=== PATIENT | male | born 1950 | race Hispanic/Latino ===

== ENCOUNTER 2019-01-07 09:32 | Inpatient (IN) | payer OTHER, MEDICARE ==
--- OUTSIDE RECORDS SUMMARY | 2019-01-07 10:06 | XMS REPORT ---
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
--- OUTSIDE RECORDS SUMMARY | 2019-01-07 10:06 | XMS REPORT ---
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
--- OUTSIDE RECORDS SUMMARY | 2019-01-07 10:06 | XMS REPORT ---
:1950 Author Organization eClinicalWorks Care Team Providers Name Role Phone Aby Dengh Provider Role Unavailable Allergies, Adverse Reactions, Alerts Substance Reaction Event Type N.K.D.A. 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 Assessment Proteinuria, unspecified type R80.9 Active Problem Proteinuria, unspecified type R80.9 Active Problem Mixed hyperlipidemia E78.2 Active Problem Tobacco use disorder F17.200 Active Problem HTN (hypertension), benign I10 Active Problem half-way current use of insulin Z79.4 Active Assessment half-way current use of insulin Z79.4 Active Assessment Tobacco use disorder F17.200 Active Assessment Swelling of joint, wrist, right M25.431 Active Assessment History of carpal tunnel surgery Z92.89 Active Assessment 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 Assessment Mixed hyperlipidemia E78.2 Active Assessment Hypothyroidism, unspecified type E03.9 Active Assessment Type 2 diabetes mellitus with E11.65 Active hyperglycemia Assessment HTN (hypertension), benign I10 Active Problem History of carpal tunnel surgery Z92.89 Active Medications Medication Code Code Instructions Start End Status Dosage System Date Date Zoloft [facility] 13626859343 50 MG Orally Active Take 1/2 Once a day tablet once a day x 1 week and then take 1 tablet once a day Tradjenta [facility] 21010413384 5 MG Orally February Active 1 tablet Once a day 2017 Levemir [facility] 25087733056 100 UNIT/ML Inactive not Subcutaneous defined Aspir-81 ND 26839856110 81 MG Orally Active 1 tablet Once a day Metformin HCl ND 16194343025 500 MG Orally February Active 1 tablet Twice a day 2017 with meals Tramadol HCl [facility] 55929321190 50 MG Orally Active 1 tablet every 6 hrs as needed Ibuprofen [facility] 39208033896 800 MG Orally Active 1 tablet Three times a with food day PRN or milk swelling and as needed pain Crestor [facility] 52749717870 10 MG Orally Active 1 tablet Once a day Levothyroxine [facility] 09480088774 75 MCG Orally Active 1 tablet Sodium Once a day on an empty stomach in the morning Lisinopril [facility] 50791847890 5 MG Orally February Active 1 tablet Once a day 2017 Tresiba [facility] 33668983500 200 UNIT/ML February Active Inject 60 FlexTouch Subcutaneous 2017 units once a day Omeprazole [facility] 34909230894 40 MG Orally Active 1 capsule Once a day Results No Known Results Summary Purpose eClinicalWorks Submission
--- OUTSIDE RECORDS SUMMARY | 2019-01-07 10:06 | XMS REPORT | Clinical Summary ---
:1950 Author Organization [employer] Address [address] [place] [address] Care Team Providers Name Role Phone Ivan Monroy MD Primary Care Provider Allergies Active Allergy Reactions Severity Noted Date Comments Metformin Other (See Comments) 01/13/2016 kidneys shut down. Medications Medication Sig Dispensed Refills Start Date End Date Status zolpidem (AMBIEN) 10 Take 10 mg by 0 Active mg tablet mouth nightly as needed for sleep. aspirin (ECOTRIN) 81 Take 81 mg by 0 Active MG enteric coated mouth daily. tablet tadalafil (CIALIS) 20 Take 20 mg by 0 Active MG tablet mouth daily as needed for erectile dysfunction. rosuvastatin (CRESTOR) Take 10 mg by 0 Active 10 MG tablet mouth daily. ibuprofen Take 800 mg by 0 Active (ADVIL,MOTRIN) 800 MG mouth every 8 tablet (eight) hours as needed for mild pain. insulin lispro Inject 5 Units 5 pen 3 03/27/2016 Active (HumaLOG KwikPen) 100 under the skin 3 unit/mL insulin pen (three) times a day with meals. linagliptin Take 1 tablet (5 90 tablet 3 03/27/2016 Active (TRADJENTA) 5 mg mg total) by mouth tablet daily. pen needle, diabetic 1 Units 4 (four) 360 each 3 03/27/2016 Active 31 gauge x 3/16" times a day. needle TURMERIC ROOT EXTRACT Take by mouth. 0 Active ORAL MAGNESIUM OXIDE/MAG AA Take by mouth. 0 Active CHELATE (MAGNESIUM, OXIDE/AA CHELATE, ORAL) insulin DETEMIR Inject 50 Units 15 pen 3 07/25/2016 Active (LEVEMIR) 100 unit/mL under the skin (3 mL) insulin pen nightly. Active Problems Problem Noted Date Benign prostatic hyperplasia 01/13/2016 Chronic anxiety 01/13/2016 Essential hypertension 01/13/2016 Mixed hyperlipidemia 01/13/2016 Uncontrolled type 2 diabetes mellitus 01/13/2016 Immunizations Name Dates Previously Given Next Due Pneumococcal Conjugate 13-Valent 01/18/2015 Family History Medical History Relation Name Comments Cancer Father pancreatic Hypertension Father Cancer Mother ovarian Relation Name Status Comments Father Mother Social History Tobacco Use Types Packs/Day Years Used Date Current Every Day Smoker Cigarettes 0.5 Started: 1972 Smokeless Tobacco: Never Used Alcohol Use Drinks/Week oz/Week Comments Yes 4 Cans of beer 2.4 Sex Assigned at Date Recorded Not on file Job Start Date Occupation Industry Not on file Not on file Not on file Travel History Travel Start Travel End No recent travel history available. Last Filed Vital Signs Not on file Plan of Treatment Health Maintenance Due Date Last Done Comments COLON CANCER SCREENING 2001 SHINGLES VACCINES (1 of 2) 2001 PNEUMOCOCCAL POLYSACCHARIDE VACCINE AGE 66 2016 AND OVER URINE MICROALBUMIN 01/10/2017 01/10/2016, 01/10/2016 DIABETIC FOOT EXAM 03/27/2017 03/27/2016, 03/27/2016 DIABETIC RETINAL EYE EXAM 05/25/2017 05/25/2016 INFLUENZA VACCINE 06/25/2018 PNEUMOCOCCAL-13 Completed 01/18/2015 Results Not on fileafter 01/06/2018 Insurance Payer Benefit Plan / Group Subscriber ID Type Phone Address [facility] HMO/POS/PPO xxxxxxxxx PPO Advance Directives Patient has advance care planning documents on file. For more information, please contact:Ramsey Delgadonin [facility] [place] [address]
--- OUTSIDE RECORDS SUMMARY | 2019-01-07 10:07 | XMS REPORT ---
:1950 Author Organization eClinicalWorks Care Team Providers Name Role Phone Kaiden Deng Provider Role Unavailable Allergies, Adverse Reactions, Alerts Substance Reaction Event Type N.K.D.A. 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 Assessment Fatigue, unspecified type R53.83 Active Assessment Proteinuria, unspecified type R80.9 Active Problem Proteinuria, unspecified type R80.9 Active Problem Mixed hyperlipidemia E78.2 Active Problem Tobacco use disorder F17.200 Active Problem HTN (hypertension), benign I10 Active Problem care home current use of 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 Z79.4 Active Assessment Tobacco use disorder F17.200 Active Assessment Hypothyroidism, unspecified type E03.9 Active Assessment History of carpal tunnel surgery Z92.89 Active Assessment care home current use of insulin Z79.4 Active Assessment Mixed hyperlipidemia E78.2 Active Assessment Type 2 diabetes mellitus with E11.65 Active hyperglycemia Assessment HTN (hypertension), benign I10 Active Assessment 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 Problem History of carpal tunnel surgery Z92.89 Active Medications Medication Code Code Instructions Start End Status Dosage System Date Date Zoloft [facility] 24592738462 50 MG Orally Active Take 1/2 Once a day tablet once a day x 1 week and then take 1 tablet once a day Crestor [facility] 72200823433 10 MG Orally Active 1 tablet Once a day Lisinopril [facility] 03298919943 5 MG Orally Active 1 tablet Once a day Omeprazole [facility] 69337784770 40 MG Orally Active 1 capsule Once a day Aspir-81 [facility] 95607710886 81 MG Orally Active 1 tablet Once a day Tramadol HCl [facility] 82200538494 50 MG Orally Active 1 tablet every 6 hrs as needed Toujeo SoloStar [facility] 88875229675 300 UNIT/ML Active Inject 70 Subcutaneous units Once a day Ibuprofen ND 80866069205 800 MG Orally May Inactive 1 tablet Three times a 12, with food day PRN 2018 or milk swelling and as needed pain Levothyroxine ND 22862315470 75 MCG Orally Active 1 tablet Sodium Once a day on an empty stomach in the morning Celecoxib ND 71156716942 100 MG Orally June 05Jul 05, Active 1 capsule Once a day 2017 2017 with food Metformin HCl ND 66257892836 500 MG Orally Active 1 tablet Twice a day with meals Tradjenta ND 37741275724 5 MG Orally February Active 1 tablet Once a day 2017 Results No Known Results Summary Purpose eClinicalWorks Submission
--- OUTSIDE RECORDS SUMMARY | 2019-01-07 10:07 | XMS REPORT ---
[...] Problem HTN (hypertension), benign I10 Active Problem skilled nursing current use of insulin Z79.4 Active Assessment Proteinuria, unspecified type R80.9 Active Assessment Type 2 diabetes mellitus with E11.65 Active hyperglycemia Assessment Mixed hyperlipidemia E78.2 Active Problem History of carpal tunnel surgery Z92.89 Active Medications Medication Code Code Instructions Start End Date Status Dosage System Date Crestor [facility] 95117036111 10 MG Orally Active 1 tablet Once a day Metformin HCl ND 51345087918 500 MG Orally March 04, Active 1 tablet Twice a day 2017 with meals Lisinopril ND 19236646269 5 MG Orally Once March 04, Active 1 tablet a day 2018 Results No Known Results Summary Purpose eClinicalWorks Submission
--- OUTSIDE RECORDS SUMMARY | 2019-01-07 10:07 | XMS REPORT ---
:1950 [facility] Address [address] [place] [address] Dr. Salgado [address] [place] [address] Care Team Providers Name Role Phone Unavailable Unavailable Unavailable Problems This patient has no known problems. Allergies, Adverse Reactions, Alerts This patient has no known allergies or adverse reactions. Medications This patient has no known medications.
[2019-01-07] MEDS ORDERED: NA CHLORIDE 0.9% 1,000 ML ONE ×2 (10:32→12:57)
--- NOTE | 2019-01-07 10:36 | RAD REPORT ---
EXAM DESCRIPTION: RAD - Chest Single View - 01/07/2019 10:29 am CLINICAL HISTORY: COUGH Chest pain. COMPARISON: CHEST PA AND LAT 2 VIEW dated 03/07/2009; CHEST PA AND LAT 2 VIEW dated 01/24/2008; THORAX W CONTRAST dated 03/14/2009 FINDINGS: Portable technique limits examination quality. Interstitial lung markings are mildly prominent suggesting underlying pneumonitis/bronchitis. No foca l infiltrate typical of pneumonia seen. The heart is normal in size. No displaced fractures.
[2019-01-07 10:47] LABS: Absolute Lymphocytes (CBC) 0.8 K/uL (0.7-4.9); Absolute Monocytes 0.4 K/uL (0.1-1.3); Absolute Neutrophil 4.1 K/uL (1.8-8.0); Basophils % 0.4 % (0-1.3); Hematocrit 45.8 % (39.6-49.0); Lymphocytes % 14.5 % (15.3-44.8); MPV 8.6 fL (7.6-11.3); Monocytes % 8.2 % (3.3-12.3); RBC Red Blood Cell Count 5.39 M/uL (4.33-5.43)
[2019-01-07 11:05] LABS: Albumin 3.5 g/dL (3.4-5.0); Bilirubin Direct 0.3 mg/dL (0-0.2); Bilirubin Total 0.8 mg/dL (0.2-1.0); Potassium 4.8 mmol/L (3.5-5.1); Protein, Total 7.3 g/dL (6.4-8.2)
--- NOTE | 2019-01-07 12:22 | EKG ---
Test Date: 2019-01-07 Test Time: 10:20:08 Manager Mba: LINDA MEASUREMENT RESULTS: Intervals: Rate: 98 [place]: 156 QRSD: 88 QT: 322 QTc: 411 Council: P: 50 [place]: 156 QRS: 123 T: 38 INTERPRETIVE STATEMENTS: Normal sinus rhythm Rightward axis Abnormal ECG Compared to ECG 12/21/2008 11:50:46 no significant change from previous ECG Electronically Signed On 01-07-19 12:21:31 JIGSAW OPERATOR by Chay Villarreal
--- NOTE | 2019-01-07 13:41 | ER ---
Nurse's Notes [facility] Name: Reynaldo Tinsley Sr Age: 68 yrs Sex: Male : 1950 Arrival Date: 01/07/2019 Time: 09:37 Bed 14 Private MD: Kaiden Deng Diagnosis: Influenza due to identified novel influenza A virus;Dehydration;Weakness Presentation: 01/07 09:48 Presenting complaint: states: "We've both had the flu, but his has been going on ss for 7 days. He still has diarrhea and is really weak and is shaky." Pt c/o fatigue. Transition of care: patient was not received from another setting of care. Onset of symptoms was November 30, 2018. Risk Assessment: Do you want to hurt yourself or someone else? Patient reports no desire to harm self or others. Initial Sepsis Screen: Does the patient meet any 2 criteria? No. Patient's initial sepsis screen is negative. Does the patient have a suspected source of infection? Yes: Productive cough/pneumonia. Care prior to arrival: None. 09:48 Method Of Arrival: Ambulatory ss 09:48 Acuity: GRACIE 3 ss Historical: - Allergies: 09:51 No Known Allergies; ss - PMHx: 09:51 Diabetes - IDDM; Hypertension; High Cholesterol; ss - PSHx: 09:51 Carpal Tunnel Repair; ss - Immunization history:: Adult Immunizations up to date. - Social history:: Smoking status: Patient uses tobacco products, smokes one pack cigarettes per day. - Ebola Screening: : Patient denies exposure to infectious person Patient denies travel to an Ebola-affected area in the 21 days before illness onset. - Family history:: not pertinent. - Hospitalizations: : No recent hospitalization is reported. Screenin:00 Abuse screen: Denies threats or abuse. Denies injuries from another. Nutritional ph screening: No deficits noted. Tuberculosis screening: No symptoms or risk factors identified. Fall Risk None identified. Assessment: 11:46 General: Appears in no apparent distress. ill, well groomed, well developed, well ph nourished, Behavior is calm, cooperative, appropriate for age, Reports chills for >3 days, fever for > 3 days, feeling ill for > 3 days, fatigue for >3 days. 11:46 Respiratory: Airway is patent Respiratory effort is even, unlabored, Respiratory ph pattern is regular, symmetrical. GI: Reports diarrhea, Patient currently denies abdominal pain, nausea, vomiting. : No signs and/or symptoms were reported regarding the genitourinary system. Derm: Skin is intact, Skin is pink, warm \\T\\ dry. Musculoskeletal: Circulation, motion, and sensation intact. Range of motion: intact in all extremities. 11:46 Pain: Denies pain. Neuro: Level of Consciousness is awake, obeys commands, lethargic, ph Oriented to person, place, time, situation, Reports dizziness, weakness in "all over" Denies. Cardiovascular: Reports fatigue, lightheadedness, Denies chest pain, nausea, shortness of breath, Capillary refill < 3 seconds in bilateral fingers Patient's skin is warm and dry. 13:00 Reassessment: Patient appears in no apparent distress at this time. No changes from ph previously documented assessment. Patient and/or family updated on plan of care and expected duration. Pain level reassessed. Patient is alert, oriented x 3, equal unlabored respirations, skin warm/dry/pink. 14:00 Reassessment: Patient appears in no apparent distress at this time. Patient and/or ph family updated on plan of care and expected duration. Pain level reassessed. Patient is alert, oriented x 3, equal unlabored respirations, skin warm/dry/pink. 15:00 Reassessment: Patient appears in no apparent distress at this time. Patient and/or ph family updated on plan of care and expected duration. Pain level reassessed. Patient is alert, oriented x 3, equal unlabored respirations, skin warm/dry/pink. 16:00 Reassessment: Patient appears in no apparent distress at this time. Patient and/or ph family updated on plan of care and expected duration. Pain level reassessed. Patient is alert, oriented x 3, equal unlabored respirations, skin warm/dry/pink. Vital Signs: 09:51 BP 133 / 87; Pulse 97; Resp 16; Temp 97.5(TE); Pulse Ox 96% on R/A; Height 5 ft. 9 in. ss (175.26 cm); Pain 0/10; 11:22 BP 123 / 71; Pulse 92; Resp 18; Pulse Ox 95% on R/A; ph 12:30 BP 119 / 69; Pulse 89; Resp 20; Pulse Ox 95% on R/A; ph 14:00 BP 117 / 72; Pulse 86; Resp 18; Pulse Ox 99% on R/A; ph 15:43 BP 111 / 66; Pulse 88; Resp 18; Temp 97.4; Pulse Ox 96% on R/A; ph ED Course: 09:37 Patient arrived in ED. as 09:38 Kaiden Deng DO is Private Physician. as 09:50 Triage completed. ss 09:51 Arm band placed on right wrist. ss 09:53 Jonah Frazier MD is Attending Physician. rn 10:12 Deirdre Byrne RN is Primary Nurse. ph 10:22 EKG done, by middle school technology teacher. reviewed by Jonah Frazier MD. at1 10:26 Initial lab(s) drawn, by ar, sent to lab. First set of blood cultures drawn by ar. dh3 Inserted saline lock: 20 gauge in right antecubital area, using aseptic technique. Blood collected. 10:31 XRAY Chest (1 view) In Process Unspecified. EDMS 10:39 Flu and/or RSV swab sent to lab. dh3 11:00 Patient has correct armband on for positive identification. Placed in gown. Bed in low ph position. Call light in reach. Side rails up X2. monitoring engineer on. Pulse ox on. NIBP on. Door closed. Noise minimized. Warm blanket given. 13:39 Marilyn Deng MD is Hospitalizing Provider. rn 16:00 No provider procedures requiring assistance completed. Patient admitted, IV remains in ph place. Administered Medications: 10:40 Drug: NS 0.9% 1000 ml Route: IV; Rate: 1000 ml; Site: right antecubital; ph 12:00 Follow up: Response: No adverse reaction; IV Status: Completed infusion ph 13:10 Drug: NS 0.9% 1000 ml Route: IV; Rate: 1000 ml; Site: right antecubital; ph 15:00 Follow up: Response: No adverse reaction; IV Status: Completed infusion ph Outcome: 13:39 Decision to Hospitalize by Provider. rn 16:18 Patient left the ED. ph 16:18 Admitted to Med/surg accompanied by tech, family with patient, via stretcher, with ph chart. 16:18 Condition: stable 16:18 Instructed on the need for admit. Signatures: Dispatcher [employer] Kathy Brito Roman, MD MD rn Smirch, Shelby, RN RN Bridget Reynolds, product marketing specialist EKG Tat1 Deirdre Byrne RN RN Kingsley, Puja 3 Corrections: (The following items were deleted from the chart) 20:10 11:46 General: Appears in no apparent distress. ill, well groomed, well developed, well ph nourished, ph
--- NOTE | 2019-01-07 13:41 | EDPHYS ---
Physician Documentation [facility] Name: Reynaldo Tinsley Sr Age: 68 yrs Sex: Male : 1950 Arrival Date: 01/07/2019 Time: 09:37 Bed 14 Private MD: Aby Dengh ED Physician Jonah Frazier HPI: 01/07 10:02 This 68 yrs old Male presents to ER via Ambulatory with complaints of Flu rn Symptoms. 10:02 The patient or guardian reports cough, flu symptoms. Onset: The symptoms/episode rn began/occurred 1 week(s) ago. Severity of symptoms: At their worst the symptoms were moderate, in the emergency department the symptoms are unchanged. Modifying factors: The symptoms are alleviated by nothing, the symptoms are aggravated by nothing. The patient has not experienced similar symptoms in the past. The patient has not recently seen a physician. Reports flu like symptoms for 1 week, got over it, he is still sick, + smoker, + diarrhea, + generalized weakness. . Historical: - Allergies: 09:51 No Known Allergies; ss - PMHx: 09:51 Diabetes - IDDM; Hypertension; High Cholesterol; ss - PSHx: 09:51 Carpal Tunnel Repair; ss - Immunization history:: Adult Immunizations up to date. - Social history:: Smoking status: Patient uses tobacco products, smokes one pack cigarettes per day. - Ebola Screening: : Patient denies exposure to infectious person Patient denies travel to an Ebola-affected area in the 21 days before illness onset. - Family history:: not pertinent. - Hospitalizations: : No recent hospitalization is reported. 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 Exam: 10:02 Constitutional: This is a well developed, well nourished patient who is awake, alert, rn and in no acute distress. Head/Face: Normocephalic, atraumatic. Eyes: Pupils equal round and reactive to light, extra-ocular motions intact. Lids and lashes normal. Conjunctiva and sclera are non-icteric and not injected. Cornea within normal limits. Periorbital areas with no swelling, redness, or edema. ENT: + dry MM, no stridor Cardiovascular: Regular rate and rhythm with a normal S1 and S2. No gallops, murmurs, or rubs. Normal PMI, no JVD. No pulse deficits. Respiratory: diminished breath sounds bilaterally Abdomen/GI: sof,t non-tender Skin: Warm, dry MS/ Extremity: Pulses equal, no cyanosis. Neurovascular intact. Full, normal range of motion. Equal circumference. Neuro: Awake and alert, GCS 15, oriented to person, place, time, and situation. Cranial nerves II-XII grossly intact. Motor strength 5/5 in all extremities. Sensory grossly intact. Cerebellar exam normal. Normal gait. 10:27 ECG was reviewed by the Attending Physician. rn Vital Signs: 09:51 BP 133 / 87; Pulse 97; Resp 16; Temp 97.5(TE); Pulse Ox 96% on R/A; Height 5 ft. 9 in. ss (175.26 cm); Pain 0/10; 11:22 BP 123 / 71; Pulse 92; Resp 18; Pulse Ox 95% on R/A; ph 12:30 BP 119 / 69; Pulse 89; Resp 20; Pulse Ox 95% on R/A; ph 14:00 BP 117 / 72; Pulse 86; Resp 18; Pulse Ox 99% on R/A; ph 15:43 BP 111 / 66; Pulse 88; Resp 18; Temp 97.4; Pulse Ox 96% on R/A; ph MDM: 09:53 Patient medically screened. rn 12:33 Differential Diagnosis: Bronchitis Influenza Upper Respiratory Infection Viral Syndrome rn Pneumonia. Data reviewed: vital signs, nurses notes. 13:38 Counseling: I had a detailed discussion with the patient and/or guardian regarding: the rn historical points, exam findings, and any diagnostic results supporting the discharge/admit diagnosis, lab results, radiology results, the need for further work-up and treatment in the hospital. Response to treatment: the patient's symptoms have mildly improved after treatment, and as a result, I will admit patient. Admission orders: after a detailed discussion of the patient's condition and case, the admit orders are written by me. 01/07 10:00 Order name: CBC with Diff; Complete Time: 12:06 rn 01/07 10:00 Order name: Basic Metabolic Panel; Complete Time: 12:06 rn 01/07 10:00 Order name: Urine Microscopic Only rn 01/07 10:00 Order name: Flu; Complete Time: 12:06 rn 01/07 10:00 Order name: CK; Complete Time: 12:06 rn 01/07 10:00 Order name: Blood Culture Adult (2) rn 01/07 10:00 Order name: XRAY Chest (1 view); Complete Time: 10:44 rn 01/07 10:00 Order name: Procalcitonin; Complete Time: 12:06 rn 01/07 10:00 Order name: Creatinine for Radiology; Complete Time: 12: rn 01/07 10:00 Order name: Hepatic Function; Complete Time: 12:06 rn 01/07 10:00 Order name: Lipase; Complete Time: 12:06 rn 01/07 13:52 Order name: Urine Dipstick--Ancillary (enter results) em1 01/07 15:21 Order name: Urine Dipstick-Ancillary EDAZ 01/07 10:00 Order name: IV Start; Complete Time: 10:39 rn 01/07 10:00 Order name: Urine Dipstick-Ancillary (obtain specimen); Complete Time: 13:11 rn 01/07 10:00 Order name: EKG; Complete Time: 10:03 rn 01/07 10:00 Order name: EKG - Nurse/Tech; Complete Time: 10:39 rn 01/07 10:00 Order name: Labs collected and sent; Complete Time: 10:39 rn 01/07 12:30 Order name: Diet Heart Healthy; Complete Time: 12:31 ph EC:27 Rate is 98 beats/min. Rhythm is regular. QRS is positive in lead aVF and negative in rn lead I. [place] interval is normal. QRS interval is normal. QT interval is normal. No Q waves. T waves are Normal. No ST changes noted. Clinical impression: NSR w/ Non-specific ST/T Changes. Interpreted by me. Administered Medications: 10:40 Drug: NS 0.9% 1000 ml Route: IV; Rate: 1000 ml; Site: right antecubital; ph 12:00 Follow up: Response: No adverse reaction; IV Status: Completed infusion ph 13:10 Drug: NS 0.9% 1000 ml Route: IV; Rate: 1000 ml; Site: right antecubital; ph 15:00 Follow up: Response: No adverse reaction; IV Status: Completed infusion ph Disposition: 01/07/19 13:39 Hospitalization ordered by Marilyn Deng for Inpatient Admission. Preliminary diagnosis are Influenza due to identified novel influenza A virus, Dehydration, Weakness. - Bed requested for Telemetry/MedSurg (Inpatient). - Status is Inpatient Admission. ph - Condition is Stable. - Problem is new. - Symptoms have improved. UTI on Admission? No Signatures: Dispatcher [employer] EDMS Jonah Frazier MD MD [facility]n [facility] RN Deirdre Byrne RN RN ph Corrections: (The following items were deleted from the chart) 14:53 13:39 Hospitalization Ordered by Marilyn Deng MD for Inpatient Admission. Preliminary ss diagnosis is Influenza due to identified novel influenza A virus; Dehydration; Weakness. Bed requested for Telemetry/MedSurg (Inpatient). Status is Inpatient Admission. Condition is Stable. Problem is new. Symptoms have improved. UTI on Admission? No. rn 16:18 14:53 01/07/2019 13:39 Hospitalization Ordered by Marilyn Deng MD for Inpatient ph Admission. Preliminary diagnosis is Influenza due to identified novel influenza A virus; Dehydration; Weakness. Bed requested for Telemetry/MedSurg (Inpatient). Status is Inpatient Admission. Condition is Stable. Problem is new. Symptoms have improved. UTI on Admission? No. ss
[2019-01-07 14:22] LABS: Urine Amorphous Sediment 1+ /HPF (NONE SEEN); Urine Bacteria <20 /HPF (NONE SEEN); Urine Culture Reflex Order NOT NEEDED; Urine RBC <5 /HPF (NONE SEEN)
[2019-01-07 15:19] LABS: Urine Blood 2+ (NEG); Urine Glucose 2+ (NEG); Urine Protein 3+ (NEG); Urine Specific Gravity 1.025 (1.005-1.030); Urine pH 5.5 (5.0-7.0)
[2019-01-07] MEDS ORDERED: ONDANSETRON 4 MG/2 ML VIAL IV PRN (15:58)
[2019-01-07] MEDS: NA CHLORIDE 0.9% 1,000 ML IV SCH (17:00)
[2019-01-07] MEDS: ENOXAPARIN 40 MG/0.4 ML SQ SCH (17:26)
[2019-01-07 18:00] VITALS: BMI 26.6
--- NOTE | 2019-01-07 18:35 | P.HP ---
Patient History Date of Service: 01/07/19 Primary Care Provider: Dr. Shant Deng Reason for admission: Cough, generalized weakness History of Present Illness: This is a 68-year-old male with hypertension, hyper anemia current smoker admitted for cough and progressively worsening generalized weakness. Past 2 days. Per patient, he has interaction with influenza positive grandchildren in the house. His also just recently getting over the flu. He states that he has been kind of feeling sick, and generalized weakness and more tired. States that he had some diarrhea. Denies any chest pain, shortness of breath, dizziness, syncopal/presyncopal episodes, vision changes, and other GI or complaints. In the ER, he was requiring 2 L oxygen to keep his oxygen saturation above 92%, his creatinine was elevated at 1.8, pro margaret of 0.6. At the time of my exam, he was hemodynamically stable, alert oriented x3 and in no acute distress. Allergies No Known Allergies Allergy (Verified 01/07/19 15:58) Home Medications: Aspirin [Aspirin EC 81 MG] 1 tab PO DAILY 01/07/19 Celecoxib [Celebrex] 1 cap PO BID 01/07/19 Insulin Glargine,Hum.rec.anlog [Toujeo Solostar] 70 units SQ DAILY 01/07/19 Levothyroxine [Synthroid*] 1 tab PO DAILY 01/07/19 Linagliptin [Tradjenta] 1 tab PO DAILY 01/07/19 Lisinopril 1 tab PO DAILY 01/07/19 Metformin HCl [Glucophage*] 1 tab PO BID 01/07/19 Omeprazole [Prilosec] 1 tab PO DAILY 01/07/19 Rosuvastatin Calcium [Crestor] 1 tab PO BEDTIME 01/07/19 Sertraline [Zoloft*] 1 tab PO DAILY 01/07/19 - Past Medical/Surgical History Has patient received pneumonia vaccine in the past: No Diabetic: Yes -: HTN -: HYPERLIPIDEMIA -: CARPAL TUNNEL SURGERY - Family History Father -: Hypertension, Diabetes Mother -: Hypertension, Diabetes - Social History Smoking Status: Current every day smoker Alcohol use: Yes CD- Drugs: No Caffeine use: Yes Place of Residence: Home Review of Systems 10-point ROS is otherwise unremarkable Physical Examination - Vital Signs Temperature: 97.9 F Blood Pressure: 119/66 Pulse: 87 Respirations: 18 Pulse Ox (%): 92 - Physical Exam General: Alert, In no apparent distress, Oriented x3 HEENT: Atraumatic, PERRLA, Mucous membr. moist/pink, EOMI, Sclerae nonicteric Neck: Supple, 2+ carotid pulse no bruit, No LAD, Without JVD or thyroid abnormality Respiratory: Clear to auscultation bilaterally, Normal air movement Cardiovascular: Regular rate/rhythm, Normal S1 S2 Gastrointestinal: Normal bowel sounds, No tenderness Musculoskeletal: No tenderness Integumentary: No rashes Neurological: Normal gait, Normal speech, Normal strength at 5/5 x4 extr, Normal tone, Normal affect Lymphatics: No axilla or inguinal lymphadenopathy - Studies Laboratory Data (last 24 hrs) 01/07/19 10:26: Creatinine 1.63 H 01/07/19 10:26: Sodium 129 L, Potassium 4.8, BUN 36 H, Creatinine 1.78 H, Glucose 397 H, Total Bilirubin 0.8, AST 41 H, ALT 27, Alkaline Phosphatase 82, Lipase 88 01/07/19 10:26: WBC 5.3, Hgb 15.4, Hct 45.8, Plt Count 118 L Microbiology Data (last 24 hrs): 01/07/19 10:30 Nasopharnyx Influenza Type A Antigen Screen - Final 01/07/19 10:30 Nasopharnyx Influenza Type B Antigen Screen - Final Assessment and Plan - Problems (Diagnosis) (1) Diabetes mellitus Current Visit: Yes Status: Chronic Qualifiers: Diabetes mellitus type: type 2 Diabetes mellitus fci insulin use: with fci use Diabetes mellitus complication status: without complication Qualified Code(s): E11.9 - Type 2 diabetes mellitus without complications; 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 Start Tamiflu IV fluids Supportive care Diarrhea Supportive care with IV fluids Essential hypertension Stable, will restart home medications as tolerated Insulin-dependent type 2 diabetes mellitus, with hyperglycemia Accu-Cheks a.c. HS Mild correcting sliding scale insulin. Hyperlipidemia, unspecified Restart home medications DVT prophylaxis: Lovenox GI prophylaxis: Protonix, home medication Diet: Regular Disposition: Pending symptomatic improvement. Likely discharge home in the next 24-48 hrs Discharge Plan: Home - Advance Directives Does patient have a Living Will: No Does patient have a Durable POA for Healthcare: No
[2019-01-07] MEDS: OSELTAMIVIR 75 MG CAP PO SCH (20:13)
[2019-01-07] MEDS: PANTOPRAZOLE 40MG TABLET PO SCH (20:13)
[2019-01-07] MEDS ORDERED: ROSUVASTATIN 10 MG TAB PO SCH (21:00)
[2019-01-07] MEDS ORDERED: D50W 25 GM/50 ML SYRINGE IV PRN (21:37)
[2019-01-07] MEDS ORDERED: GLUCAGON 1 MG/VIAL IM PRN (21:37)
[2019-01-07] MEDS: INSULIN -REGULAR HUMAN 50 UNIT/0.5 ML ML SQ SCH (22:20)
[2019-01-08] MEDS: NA CHLORIDE 0.9% 1,000 ML IV SCH ×2 (03:29→09:24)
[2019-01-08 03:31] VITALS: O2SAT 93
[2019-01-08 05:57] LABS: Absolute Lymphocytes (CBC) 1.3 K/uL (0.7-4.9); Absolute Monocytes 0.6 K/uL (0.1-1.3); Basophils % 0.5 % (0-1.3); Lymphocytes % 27.4 % (15.3-44.8); Monocytes % 11.4 % (3.3-12.3); RBC Red Blood Cell Count 4.57 M/uL (4.33-5.43)
[2019-01-08 05:59] LABS: Albumin 2.7 g/dL (3.4-5.0); Bilirubin Total 0.5 mg/dL (0.2-1.0); Magnesium 1.9 mg/dL (1.8-2.4); Phosphorus 1.8 mg/dL (2.5-4.9); Potassium 4.3 mmol/L (3.5-5.1); Protein, Total 5.7 g/dL (6.4-8.2)
[2019-01-08] MEDS ORDERED: LEVOTHYROXINE SOD 0.075 MG TAB PO SCH (06:00)
[2019-01-08] MEDS: POTASS/SODIUM PHOSPHATE 1 PKT POWD.PACK PO SCH ×3 (06:49→09:21)
[2019-01-08] MEDS: INSULIN -REGULAR HUMAN 50 UNIT/0.5 ML ML SQ SCH ×5 (07:30→16:30)
[2019-01-08] MEDS ORDERED: INSULIN -REGULAR HUMAN 50 UNIT/0.5 ML ML SQ SCH (07:30)
[2019-01-08] MEDS ORDERED: INSULIN GLARGINE 100 UNITS/ML SQ SCH (09:00)
[2019-01-08] MEDS ORDERED: ASPIRIN EC 81 MG TAB PO SCH (09:00)
[2019-01-08] MEDS ORDERED: HOME MED 1 EA UNK (Omeprazole [Prilosec] 1 TAB) PO SCH (09:00)
[2019-01-08] MEDS ORDERED: INSULIN GLARGINE HUM REC ANLOG 70 UNIT SQ SCH (09:00)
[2019-01-08] MEDS ORDERED: SERTRALINE HCL 50 MG TAB PO SCH (09:00)
[2019-01-08] MEDS ORDERED: LISINOPRIL 5 MG TAB PO SCH (09:00)
[2019-01-08] MEDS: PANTOPRAZOLE 40MG TABLET PO SCH (09:22)
[2019-01-08] MEDS: ENOXAPARIN 40 MG/0.4 ML SQ SCH (09:22)
[2019-01-08] MEDS: OSELTAMIVIR 75 MG CAP PO SCH (09:22)
[2019-01-08 16:35] VITALS: BP 119/66; TEMP 97.9
--- NOTE | 2019-01-08 16:42 | P.DS ---
Admission Date: 01/07/19 Discharge Date: 01/08/19 Primary Care Provider: Dr. 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 Diabetes mellitus complication status: without complication Qualified Code(s): E11.9 - Type 2 diabetes mellitus without complications; Z79.4 - shelter (current) use of insulin (2) Hypertension Current Visit: Yes Status: Chronic Qualifiers: Hypertension type: essential hypertension Qualified Code(s): I10 - Essential (primary) hypertension (3) Hyperlipidemia Current Visit: Yes Status: Chronic Qualifiers: Hyperlipidemia type: unspecified Qualified Code(s): E78.5 - Hyperlipidemia , unspecified (4) Diarrhea Current Visit: Yes Status: Acute (5) Influenza A Current Visit: Yes Status: Acute Brief History of Present Illness: This is a 68-year-old male with hypertension, hyper anemia current smoker admitted for cough and progressively worsening generalized weakness. Past 2 days. Per patient, he has interaction with influenza positive grandchildren in the house. His also just recently getting over the flu. He states that he has been kind of feeling sick, and generalized weakness and more tired. States that he had some diarrhea. Denies any chest pain, shortness of breath, dizziness, syncopal/presyncopal episodes, vision changes, and other GI or complaints. In the ER, he was requiring 2 L oxygen to keep his oxygen saturation above 92%, his creatinine was elevated at 1.8, pro margaret of 0.6. At the time of my exam, he was hemodynamically stable, alert oriented x3 and in no acute distress. Hospital Course: Patient was admitted. He was continued on IV fluids and Tamiflu. Overnight, his symptoms improved. His diarrhea also improved. He stated that he wanted to go home, and then he felt much better. He was off of oxygen, satting well on room air. He is ambulating without any concerns, tolerating oral diet. He remained hemodynamically stable throughout the stay, afebrile throughout the stay. He was discharged home on Tamiflu to complete a 5 day course. Vital Signs/Physical Exam: Temp Pulse Resp BP Pulse Ox 97.9 F 87 18 119/66 92 01/08/19 16:38 01/08/19 16:38 01/08/19 16:38 01/08/19 16:38 01/08/19 16:38 General: Alert, In no apparent distress, Oriented x3 HEENT: Atraumatic, PERRLA, EOMI Neck: Supple, JVD not distended Respiratory: Clear to auscultation bilaterally, Normal air movement Cardiovascular: Regular rate/rhythm, Normal S1 S2 Gastrointestinal: Normal bowel sounds, No tenderness Musculoskeletal: No tenderness Integumentary: No rashes Neurological: Normal speech, Normal tone, Normal affect Lymphatics: No axilla or inguinal lymphadenopathy Laboratory Data at Discharge: WBC 4.9 K/uL (4.3-10.9) 01/08/19 05:09 Hgb 13.1 g/dL (13.6-17.9) L 01/08/19 05:09 Hct 38.0 % (39.6-49.0) L D 01/08/19 05:09 Plt Count 119 K/uL (152-406) L 01/08/19 05:09 Sodium 133 mmol/L (136-145) L 01/08/19 05:09 Potassium 4.3 mmol/L (3.5-5.1) 01/08/19 05:09 BUN 28 mg/dL (7-18) H 01/08/19 05:09 Creatinine 1.10 mg/dL (0.55-1.3) 01/08/19 05:09 Glucose 251 mg/dL (74-106) H 01/08/19 13:58 Phosphorus 1.8 mg/dL (2.5-4.9) L 01/08/19 05:09 Magnesium 1.9 mg/dL (1.8-2.4) 01/08/19 05:09 Total Bilirubin 0.5 mg/dL (0.2-1.0) 01/08/19 05:09 AST 36 U/L (15-37) 01/08/19 05:09 ALT 23 U/L (12-78) 01/08/19 05:09 Alkaline Phosphatase 68 U/L (45-117) 01/08/19 05:09 Lipase 88 U/L (73-393) 01/07/19 10:26 Home Medications: Aspirin [Aspirin EC 81 MG] 1 tab PO DAILY 01/07/19 Celecoxib [Celebrex] 1 cap PO BID 01/07/19 Insulin Glargine,Hum.rec.anlog [Toujeo Solostar] 70 units SQ DAILY 01/07/19 Levothyroxine [Synthroid*] 1 tab PO DAILY 01/07/19 Linagliptin [Tradjenta] 1 tab PO DAILY 01/07/19 Lisinopril 1 tab PO DAILY 01/07/19 Metformin HCl [Glucophage*] 1 tab PO BID 01/07/19 Omeprazole [Prilosec] 1 tab PO DAILY 01/07/19 Rosuvastatin Calcium [Crestor] 1 tab PO BEDTIME 01/07/19 Sertraline [Zoloft*] 1 tab PO DAILY 01/07/19 Oseltamivir [Tamiflu*] 75 mg PO BID #10 cap 01/08/19 New Medications: Oseltamivir [Tamiflu*] 75 mg PO BID #10 cap Patient Discharge Instructions: Please follow up with the primary care physician monitor. Please return to the ER for worsening symptoms. New medications: Tamiflu Diet: ADA Activity: Ad michelle Time spent managing pt's care (in minutes): 55
== END 2019-01-08 17:33 | disposition home or self-care (01) | DRG 195 ==
LOC: ER 09:32 → ERHOLD 12:47 → 4TH 16:05
PROVIDERS: ADMIT Family Medicine; ATTEND Family Medicine
DX: J09.X2 Influenza due to identified novel influenza A virus with other respiratory manifestations (principal); E78.5 Hyperlipidemia, unspecified; Z79.4 Long term (current) use of insulin; I10 Essential (primary) hypertension; R19.7 Diarrhea, unspecified; D64.9 Anemia, unspecified; F17.210 Nicotine dependence, cigarettes, uncomplicated; E11.65 Type 2 diabetes mellitus with hyperglycemia; Z79.84 Long term (current) use of oral hypoglycemic drugs
CPT/HCPCS: 36415; 71045; 80048; 80053; 80076; 81003; 81015; 82550; 82947; 82962; 83690; 83735; 84100; 84145; 85025; 87040; 87804; 93005; 94760; 96360; 96361; 99285; J1650; J7030

== ENCOUNTER 2019-01-19 12:25 | Inpatient (IN) | payer OTHER, MEDICARE ==
--- OUTSIDE RECORDS SUMMARY | 2019-01-19 12:27 | XMS REPORT | Clinical Summary ---
:1950 Author Organization [facility] Address [address] [place] [address] Care Team Providers Name Role Phone Ivan [...] Comments COLON CANCER SCREENING 2001 SHINGLES VACCINES (#1) 2001 65+ PNEUMOCOCCAL VACCINE (2 of 2 - PPSV23) 2016 01/18/2015 PNEUMOCOCCAL POLYSACCHARIDE VACCINE AGE 65 2016 AND OVER URINE MICROALBUMIN 01/10/2017 01/10/2016, 01/10/2016 DIABETIC FOOT EXAM 03/27/2017 03/27/2016, 03/27/2016 DIABETIC RETINAL EYE EXAM 05/25/2018 05/25/2016 INFLUENZA VACCINE 06/25/2018 Results Not on fileafter 01/18/2018 Insurance Payer Benefit Plan / Group Subscriber ID Type Phone Address [facility] COMMERCIAL HMO/POS/PPO xxxxxxxxx PPO Advance Directives Patient has advance care planning documents on file. For more information, please contact:[place] [address]
--- OUTSIDE RECORDS SUMMARY | 2019-01-19 12:27 | XMS REPORT ---
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
--- OUTSIDE RECORDS SUMMARY | 2019-01-19 12:27 | XMS REPORT ---
[...] Problem HTN (hypertension), benign I10 Active Problem residential current use of insulin Z79.4 Active Assessment residential current use of insulin Z79.4 Active Assessment [...] End Status Dosage System Date Date Zoloft [facility] 79811066189 50 MG Orally Active Take 1/2 Once a day tablet once a day x 1 week and then take 1 tablet once a day Tradjenta [facility] 31831245008 5 MG Orally February Active 1 tablet Once a day 2017 Levemir [facility] 68636168624 100 UNIT/ML Inactive not Subcutaneous defined Aspir-81 ND 62164969792 81 MG Orally Active 1 tablet Once a day Metformin HCl ND 66017416853 500 MG Orally February Active 1 tablet Twice a day 2017 with meals Tramadol HCl [facility] 41666612203 50 MG Orally Active 1 tablet every 6 hrs as needed Ibuprofen [facility] 51127698951 800 MG Orally Active 1 tablet Three times a with food day PRN or milk swelling and as needed pain Crestor [facility] 89661032857 10 MG Orally Active 1 tablet Once a day Levothyroxine [facility] 01727370069 75 MCG Orally Active 1 tablet Sodium Once a day on an empty stomach in the morning Lisinopril [facility] 51113013304 5 MG Orally February Active 1 tablet Once a day 2017 Tresiba [facility] 15827701630 200 UNIT/ML February Active Inject 60 FlexTouch Subcutaneous 2017 units once a day Omeprazole [facility] 51709830228 40 MG Orally Active 1 capsule Once a day Results No Known Results Summary Purpose eClinicalWorks Submission
--- OUTSIDE RECORDS SUMMARY | 2019-01-19 12:27 | XMS REPORT ---
[...] Problem HTN (hypertension), benign I10 Active Problem senior care current use of insulin Z79.4 Active Medications Medication Code System Code Instructions Start End Date Status Dosage Date Ibuprofen [facility] 32986913004 800 MG Orally May 18, Active 1 tablet Three times a day 2017 with food PRN swelling and or milk as pain needed Results No Known Results Summary Purpose eClinicalWorks Submission
--- OUTSIDE RECORDS SUMMARY | 2019-01-19 12:27 | XMS REPORT ---
[...] Problem HTN (hypertension), benign I10 Active Problem [facility] current use of insulin Z79.4 Active Assessment Proteinuria, unspecified type R80.9 Active Assessment Type 2 diabetes mellitus with E11.65 Active hyperglycemia Assessment Mixed hyperlipidemia E78.2 Active Problem History of carpal tunnel surgery Z92.89 Active Medications Medication Code Code Instructions Start End Date Status Dosage System Date Crestor [facility] 22479229237 10 MG Orally Active 1 tablet Once a day Metformin HCl ND 75723165653 500 MG Orally March 04, Active 1 tablet Twice a day 2017 with meals Lisinopril ND 32168588777 5 MG Orally Once March 04, Active 1 tablet a day 2018 Results No Known Results Summary Purpose eClinicalWorks Submission
--- OUTSIDE RECORDS SUMMARY | 2019-01-19 12:28 | XMS REPORT ---
:1950 Author Organization [facility] Address [address] [place] [address] Dr. Salgado [address] [place] [address] Care Team Providers Name Role Phone Unavailable Unavailable Unavailable Problems This patient has no known problems. Allergies, Adverse Reactions, Alerts This patient has no known allergies or adverse reactions. Medications This patient has no known medications.
--- OUTSIDE RECORDS SUMMARY | 2019-01-19 12:28 | XMS REPORT ---
[...] Problem HTN (hypertension), benign I10 Active Problem detention current use of insulin Z79.4 Active Assessment Cough R05 Active Assessment Generalized weakness R53.1 Active Assessment Influenza A J10.1 Active Assessment Dehydration E86.0 Active Assessment Renal insufficiency N28.9 Active Problem History of carpal tunnel surgery Z92.89 Active Medications Medication Code Code Instructions Start End Date Status Dosage System Date Benzonatate [facility] 67118416732 200 MG Orally Jan 14January Active 1 capsule Three times a [address] [facility] 61490218965 50 MG Orally Active Take 1/2 Once a day tablet once a day x 1 week and then take 1 tablet once a day Aspir-[address] [facility] 20562308702 81 MG Orally Active 1 tablet Once a day Lisinopril [facility] 67740633985 5 MG Orally Active 1 tablet Once a day Tramadol HCl ND 41353566534 50 MG Orally Active 1 tablet every 6 hrs as needed Crestor [facility] 61371833076 10 MG Orally Active 1 tablet Once a day Tradjenta [facility] 59940045945 5 MG Orally Active 1 tablet Once a day Omeprazole [facility] 18706720216 40 MG Orally Active 1 capsule Once a day Ibuprofen [facility] 73542200799 800 MG Orally Active 1 tablet Three times a with food day PRN or milk as swelling and needed pain Levothyroxine [facility] 83078310576 75 MCG Orally Active 1 tablet Sodium Once a day on an empty stomach in the morning Metformin HCl [facility] 19521366429 500 MG Orally Active 1 tablet Twice a day with meals Josesito Salazar [facility] 50300004066 300 UNIT/ML Active Inject 70 Subcutaneous units Once a day Results No Known Results Summary Purpose eClinicalWorks Submission
--- OUTSIDE RECORDS SUMMARY | 2019-01-19 12:28 | XMS REPORT ---
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 Problem History of carpal tunnel surgery Z92.89 Active Medications Medication Code Code Instructions Start End Status Dosage System Date Date Zoloft [facility] 92741024325 50 MG Orally Active Take 1/2 Once a day tablet once a day x 1 week and then take 1 tablet once a day Crestor [facility] [place] 55820409123 10 MG Orally Active 1 tablet Once a day Lisinopril [facility] [place] 07054968881 5 MG Orally Active 1 tablet Once a day Omeprazole [facility] [place] 71737136884 40 MG Orally Active 1 capsule Once a day Aspir-81 [facility] [place] 90976269052 81 MG Orally Active 1 tablet Once a day Tramadol HCl [facility] [place] 30827218981 50 MG Orally Active 1 tablet every 6 hrs as needed Toujeo SoloStar [facility] [place] 19834413541 300 UNIT/ML Active Inject 70 Subcutaneous units Once a day Ibuprofen ND 55960709085 800 MG Orally May Inactive 1 tablet Three times a 12, with food day PRN 2018 or milk swelling and as needed pain Levothyroxine ND 38376449808 75 MCG Orally Active 1 tablet Sodium Once a day on an empty stomach in the morning Celecoxib ND 92865002898 100 MG Orally June 05Jul 05, Active 1 capsule Once a day 2017 2017 with food Metformin HCl ND 01630988500 500 MG Orally Active 1 tablet Twice a day with meals Tradjenta ND 25122266362 5 MG Orally February Active 1 tablet Once a day 2017 Results No Known Results Summary Purpose eClinicalWorks Submission
[2019-01-19] MEDS ORDERED: MAGNESIUM SULFATE 1 gm IVPB 1 GM/100 ML BAG IV ONE (13:59)
[2019-01-19] MEDS ORDERED: NA CHLORIDE 0.9% 1,000 ML ONE (13:59)
[2019-01-19 14:01] LABS: Absolute Lymphocytes (CBC) 1.4 K/uL (0.7-4.9); Basophils % 0.4 % (0-1.3); Eosinophils % 0.1 % (0-4.4); Hematocrit 35.7 % (39.6-49.0); Lymphocytes % 9.5 % (15.3-44.8); MPV 7.2 fL (7.6-11.3); Monocytes % 13.6 % (3.3-12.3); RBC Red Blood Cell Count 4.28 M/uL (4.33-5.43)
--- NOTE | 2019-01-19 14:10 | RAD REPORT ---
EXAM DESCRIPTION: CT - Abdomen Pelvis Wo Contrast - 01/19/2019 2:01 pm CLINICAL HISTORY: Abdominal pain. ABD PAIN COMPARISON: THORAX W CONTRAST dated 03/14/2009 TECHNIQUE: CT imaging of the abdomen and pelvis was performed without contrast. Solid organ, bowel a nd vascular assessment is limited due to lack of IV and oral contrast. All CT scans are performed using dose optimization technique as appropriate and may include automated exposure control or mA/KV adjustment according to patient size. FINDINGS: Extensive ill-defined reticulonodular lung opacities are present in both lung bases, likel y representing pneumonia. Limited noncontrast assessment of the liver, spleen, pancreas and adrenal glands are normal. Punctate stones are present in both kidneys without significant hydronephrosis. No bowel obstruction, free air, free fluid or abscess. The appendix is normal. Mild lumbosacral degenerative changes. IMPRESSION: Extensive reticulonodular infiltrates in both lung bases most compatible with pulmonary infection/ pneumonia. Punctate bilateral nephrolithiasis without hydronephrosis. A limited non-contrast examination was performed as detailed.
[2019-01-19 14:17] LABS: Albumin 2.5 g/dL (3.4-5.0); Bilirubin Direct 0.4 mg/dL (0-0.2); Protein, Total 7.2 g/dL (6.4-8.2)
--- NOTE | 2019-01-19 14:32 | RAD REPORT ---
EXAM DESCRIPTION: RAD - Chest Single View - 01/19/2019 2:09 pm CLINICAL HISTORY: COUGH Chest pain. COMPARISON: Chest Single View dated 01/07/2019; CHEST PA AND LAT 2 VIEW dated 03/07/2009; CHEST PA AND LAT 2 VIEW dated 01/24/2008 FINDINGS: Portable technique limits examination quality. [id number] bilateral reticulonodular lung infiltrates are present, greatest in the lung bases, likely representing pulmonary infection/pneumonia. The heart is normal in size. No displaced fracture s.
[2019-01-19] MEDS ORDERED: CEFTRIAXONE/SWI 1gm 1 GM/10 ML SYR ONE (14:35)
[2019-01-19] MEDS ORDERED: OSELTAMIVIR 75 MG CAP ONE (14:35)
--- NOTE | 2019-01-19 14:56 | ER ---
Nurse's Notes [facility] Name: Reynaldo Tinsley Sr Age: 68 yrs Sex: Male : 1950 Arrival Date: 01/19/2019 Time: 12:28 Bed 4 Private MD: Kaiden Deng Diagnosis: Pneumonia due to other infectious organisms, not elsewhere classified Presentation: 01/19 12:53 Presenting complaint: Patient states: diarrhea x 2-3 days ago. Pt's states "he aa5 hasn't really been eating or drinking for the last few days". Pt's states "he was in the hospital with the flu about a week ago and he still has a cough". Transition of care: patient was not received from another setting of care. Onset of symptoms was December 2018. Risk Assessment: Do you want to hurt yourself or someone else? Patient reports no desire to harm self or others. Care prior to arrival: None. 12:53 Method Of Arrival: Ambulatory aa5 12:53 Acuity: GRACIE 3 aa5 13:05 Initial Sepsis Screen: Does the patient meet any 2 criteria? Yes Does the patient have hj a suspected source of infection? Yes:. Triage Assessment: 13:04 General: Appears in no apparent distress. uncomfortable, Behavior is calm, cooperative, hj appropriate for age. Pain: Denies pain. GI: Reports vomiting. Historical: - Allergies: 12:54 No Known Allergies; aa5 - PMHx: 12:54 Diabetes - IDDM; High Cholesterol; Hypertension; aa5 - PSHx: 12:54 Carpal Tunnel Repair; aa5 - Immunization history:: Flu vaccine is not up to date. - Social history:: Smoking status: Patient/guardian denies using tobacco, Patient/guardian denies using alcohol, street drugs, The patient lives with family, . - Ebola Screening: : No symptoms or risks identified at this time. - Family history:: not pertinent. Screenin:04 Abuse screen: Denies threats or abuse. Denies injuries from another. Nutritional hj screening: No deficits noted. Tuberculosis screening: No symptoms or risk factors identified. Fall Risk None identified. Assessment: 13:05 General: Appears in no apparent distress. uncomfortable, Behavior is calm, cooperative, hj appropriate for age. Pain: Denies pain. Neuro: Level of Consciousness is awake, alert, obeys commands, Oriented to person, place, time, situation, Appropriate for age. Cardiovascular: Capillary refill < 3 seconds Patient's skin is warm and dry. Respiratory: Airway is patent Respiratory effort is even, unlabored, Respiratory pattern is regular, symmetrical. GI: Reports diarrhea. : No signs and/or symptoms were reported regarding the genitourinary system. EENT: No signs and/or symptoms were reported regarding the EENT system. Derm: No signs and/or symptoms reported regarding the dermatologic system. Musculoskeletal: No signs and/or symptoms reported regarding the musculoskeletal system. 14:00 Reassessment: Patient and/or family updated on plan of care and expected duration. Pain hj level reassessed. Patient is alert, oriented x 3, equal unlabored respirations, skin warm/dry/pink. awaiting results and POC;. 15:57 Reassessment: Patient and/or family updated on plan of care and expected duration. Pain hj level reassessed. Patient is alert, oriented x 3, equal unlabored respirations, skin warm/dry/pink. for admit; awaiting room placement;. 16:20 Reassessment: called the floor, sec tells ED nurse they will call back for report;. hj Vital Signs: 12:54 BP 97 / 64; Pulse 103; Resp 20 S; Temp 97.8(TE); Pulse Ox 94% on R/A; Weight 79.38 kg aa5 (R); Height 5 ft. 9 in. (175.26 cm) (R); Pain 0/10; 14:52 BP 123 / 60; Pulse 80; Resp 18; Pulse Ox 95% on R/A; hj 15:57 BP 110 / 58; Pulse 60; Resp 18; Pulse Ox 96% on R/A; hj 16:41 BP 111 / 62; Pulse 80; Resp 18; Pulse Ox 94% on R/A; pc1 12:54 Body Mass Index 25.84 (79.38 kg, 175.26 cm) aa5 ED Course: 12:28 Patient arrived in ED. dl4 12:28 Kaiden Deng DO is Private Physician. dl4 12:53 Arm band placed on. aa5 12:54 Triage completed. aa5 12:57 Yong Post MD is Attending Physician. ma2 13:04 Arnol Tabor RN is Primary Nurse. hj 13:05 Patient has correct armband on for positive identification. Placed in gown. Bed in low hj position. Call light in reach. Side rails up X 1. Adult w/ patient. 13:35 Initial lab(s) drawn, by me, held in ED. Inserted saline lock: 20 gauge in right pc1 forearm, using aseptic technique. 14:01 CT Abd/Pelvis - Without Cont In Process Unspecified. EDMS 14:07 X-ray completed. Portable x-ray completed in exam room. Patient tolerated procedure jb2 well. 14:09 Chest Single View XRAY In Process Unspecified. EDMS 14:54 Angelika Velasquez MD is Hospitalizing Provider. ma2 15:04 Vancomycin Level Trough Sent. pc1 16:24 EKG done, by certified cytotechnologist. reviewed by Yong Post MD. sm3 17:05 No provider procedures requiring assistance completed. Patient admitted, IV remains in hj place. intact. Administered Medications: 13:45 Drug: NS 0.9% 1000 ml Route: IV; Rate: 1 bolus; Site: right forearm; hj 15:08 Follow up: IV Status: Completed infusion hj 13:45 Drug: Magnesium Sulfate 1 grams Route: IVPB; Infused Over: 1 hrs; Site: right forearm; hj 15:08 Follow up: IV Status: Completed infusion hj 14:21 Drug: Rocephin 1 grams Route: IV; Rate: calculated rate; Site: right antecubital; hj 14:51 Follow up: IV Status: Completed infusion hj 14:21 Drug: Tamiflu 75 mg Route: PO; hj 14:52 Follow up: Response: No adverse reaction hj 15:00 Drug: vancoMYCIN 1 grams Route: IVPB; Infused Over: 2 hrs; Site: right antecubital; hj 15:08 Follow up: IV Status: Infusion continued hj Outcome: 14:55 Decision to Hospitalize by Provider. ma2 17:05 Attestation : i agree with assessment and notes of SN Urmila. hj 17:05 Admitted to Med/surg accompanied by tech, family with patient, via wheelchair, room 228, with chart, Report called to MARJAN Vera 17:05 Condition: stable 17:05 Instructed on the need for admit, Demonstrated understanding of instructions. 17:10 Patient left the ED. hj Signatures: Dispatcher [facility] Michael Nicole jb2 Adele Vázquez RN RN aa5 Arnol Tabor RN RN hj Yong Post MD MD md2 Brandie Mason 3 Wayne Barton dl4 Jaylen Arriola pc1
--- NOTE | 2019-01-19 14:56 | EDPHYS ---
Physician Documentation [facility] Name: Reynaldo Tinsley Sr Age: 68 yrs Sex: Male : 1950 Arrival Date: 01/19/2019 Time: 12:28 Bed 4 Private MD: Ish [facility] ED Physician Yong Post HPI: 01/19 13:33 This 68 yrs old Male presents to ER via Ambulatory with complaints of Diarrhea.ma2 13:33 The patient presents to the emergency department with nausea, diarrhea. Onset: The ma2 symptoms/episode began/occurred gradually, 2 week(s) ago. Associated signs and symptoms: Pertinent positives: Pertinent negatives: anorexia, dysuria, hematuria, nausea. Severity of symptoms: At their worst the symptoms were moderate in the emergency department the symptoms are unchanged. The patient has experienced similar episodes in the past. Historical: - Allergies: 12:54 No Known Allergies; aa5 - PMHx: 12:54 Diabetes - IDDM; High Cholesterol; Hypertension; aa5 - PSHx: 12:54 Carpal Tunnel Repair; aa5 - Immunization history:: Flu vaccine is not up to date. - Social history:: Smoking status: Patient/guardian denies using tobacco, Patient/guardian denies using alcohol, street drugs, The patient lives with family, . - Ebola Screening: : No symptoms or risks identified at this time. - Family history:: not pertinent. ROS: 13:33 Constitutional: Negative for fever, chills, and weight loss. ma2 13:33 Abdomen/GI: Positive for abdominal pain, Negative for nausea, abdominal distension, rectal pain, bowel incontinence. 13:33 All other systems are negative. Exam: 13:33 Constitutional: This is a well developed, well nourished patient who is awake, alert, ma2 and in no acute distress. Chest/axilla: Normal chest wall appearance and motion. Nontender with no deformity. No lesions are appreciated. Cardiovascular: Regular rate and rhythm with a normal S1 and S2. No gallops, murmurs, or rubs. Normal PMI, no JVD. No pulse deficits. Respiratory: Lungs have equal breath sounds bilaterally, clear to auscultation and percussion. No rales, rhonchi or wheezes noted. No increased work of breathing, no retractions or nasal flaring. Abdomen/GI: Soft, non-tender, with normal bowel sounds. No distension or tympany. No guarding or rebound. No evidence of tenderness throughout. MS/ Extremity: Pulses equal, no cyanosis. Neurovascular intact. Full, normal range of motion. Neuro: Awake and alert, GCS 15, oriented to person, place, time, and situation. Cranial nerves II-XII grossly intact. Motor strength 5/5 in all extremities. Sensory grossly intact. Cerebellar exam normal. Normal gait. Vital Signs: 12:54 BP 97 / 64; Pulse 103; Resp 20 S; Temp 97.8(TE); Pulse Ox 94% on R/A; Weight 79.38 kg aa5 (R); Height 5 ft. 9 in. (175.26 cm) (R); Pain 0/10; 14:52 BP 123 / 60; Pulse 80; Resp 18; Pulse Ox 95% on R/A; hj 15:57 BP 110 / 58; Pulse 60; Resp 18; Pulse Ox 96% on R/A; hj 16:41 BP 111 / 62; Pulse 80; Resp 18; Pulse Ox 94% on R/A; pc1 12:54 Body Mass Index 25.84 (79.38 kg, 175.26 cm) aa5 MDM: 12:57 Patient medically screened. [facility] 13:33 Differential diagnosis: Nonspecific abd pain, appendicitis, diverticulitis, viral ma2 gastroenteritis. 14:54 Data reviewed: vital signs, nurses notes. Counseling: I had a detailed discussion with ma2 the patient and/or guardian regarding: the historical points, exam findings, and any diagnostic results supporting the discharge/admit diagnosis, the presence of at least one elevated blood pressure reading (>120/80) during this emergency department visit. Response to treatment: the patient's symptoms have markedly improved after treatment. ED course: accepted by dr. malhotra. 01/19 13:36 Order name: Basic Metabolic Panel; Complete Time: 14:20 [facility] 01/19 13:36 Order name: CBC with Diff; Complete Time: 14:20 tn01/19 13:36 Order name: Creatinine for Radiology; Complete Time: 14:20 tn01/19 13:36 Order name: Hepatic Function; Complete Time: 14:20 [facility] 01/19 13:36 Order name: Lipase; Complete Time: 14:20 ma01/19 14:39 Order name: Vancomycin Level Trough [facility] 01/19 13:36 Order name: Chest Single View XRAY; Complete Time: 14:53 [facility] 01/19 13:36 Order name: CT Abd/Pelvis - Without Cont; Complete Time: 14:20 [facility] 01/19 15:04 Order name: Blood Culture Adult (2) [facility] 01/19 13:36 Order name: IV Saline Lock; Complete Time: 13:46 [facility] 01/19 13:36 Order name: Labs collected and sent; Complete Time: 13:52 [facility] 01/19 16:12 Order name: EKG; Complete Time: 16:12 hj Administered Medications: 13:45 Drug: NS 0.9% 1000 ml Route: IV; Rate: 1 bolus; Site: right forearm; hj 15:08 Follow up: IV Status: Completed infusion hj 13:45 Drug: Magnesium Sulfate 1 grams Route: IVPB; Infused Over: 1 hrs; Site: right forearm; hj 15:08 Follow up: IV Status: Completed infusion hj 14:21 Drug: Rocephin 1 grams Route: IV; Rate: calculated rate; Site: right antecubital; hj 14:51 Follow up: IV Status: Completed infusion hj 14:21 Drug: Tamiflu 75 mg Route: PO; hj 14:52 Follow up: Response: No adverse reaction hj 15:00 Drug: vancoMYCIN 1 grams Route: IVPB; Infused Over: 2 hrs; Site: right antecubital; hj 15:08 Follow up: IV Status: Infusion continued hj Disposition: 01/19/19 14:55 Hospitalization ordered by Angelika Malhotra for Inpatient Admission. Preliminary diagnosis is Pneumonia due to other infectious organisms, not elsewhere classified. - Bed requested for Telemetry/MedSurg (Inpatient). - Status is Inpatient Admission. hj - Condition is Stable. - Problem is new. - Symptoms are unchanged. UTI on Admission? No Signatures: Dispatcher [employer] [facility] Sallie Carpenter Audri, RN RN aa5 Arnol Tabor RN RN Yong Post MD MD ma2 Corrections: (The following items were deleted from the chart) 15:57 14:55 Hospitalization Ordered by Angelika Malhotra MD for Inpatient Admission. Preliminary bd diagnosis is Pneumonia due to other infectious organisms, not elsewhere classified. Bed requested for Telemetry/MedSurg (Inpatient). Status is Inpatient Admission. Condition is Stable. Problem is new. Symptoms are unchanged. UTI on Admission? No. ma2 17:10 15:57 01/19/2019 14:55 Hospitalization Ordered by Angelika Malhotra MD for Inpatient hj Admission. Preliminary diagnosis is Pneumonia due to other infectious organisms, not elsewhere classified. Bed requested for Telemetry/MedSurg (Inpatient). Status is Inpatient Admission. Condition is Stable. Problem is new. Symptoms are unchanged. UTI on Admission? No. bd
[2019-01-19] MEDS ORDERED: VANCOMYCIN 2 GM in NA CHLORIDE 0.9% 500 ML IVPB ONE (15:00)
[2019-01-19] MEDS ORDERED: ALBUTEROL 2.5 MG/3 ML NEB SOL NEB PRN (16:49)
[2019-01-19] MEDS ORDERED: ONDANSETRON 4 MG/2 ML VIAL IV PRN (16:49)
[2019-01-19 17:42] VITALS: BMI 25.8
[2019-01-19] MEDS: NA CHLORIDE 0.9% 1,000 ML IV SCH (17:44)
[2019-01-19] MEDS: AZITHROMYCIN IV 500 MG in NA CHLORIDE 0.9% 250 ML IVPB SCH (17:46)
[2019-01-19] MEDS: ENOXAPARIN 40 MG/0.4 ML SQ SCH (18:17)
--- NOTE | 2019-01-19 18:37 | EKG ---
Test Date: 2019-01-19 Test Time: 16:21:08 Muffler Hand: BEREKET MEASUREMENT RESULTS: Intervals: Rate: 80 OH: 172 QRSD: 94 QT: 372 QTc: 429 [place]: P: 47 OH: 172 QRS: 70 T: 30 INTERPRETIVE STATEMENTS: Normal sinus rhythm Normal ECG Compared to ECG 01/07/2019 10:20:08 Right-axis deviation no longer present Electronically Signed On 01-19-19 18:35:29 [employer]OR[employer] SPECIALIST by Chay Villarreal
[2019-01-19] MEDS ORDERED: D50W 25 GM/50 ML SYRINGE IV PRN (18:45)
[2019-01-19] MEDS ORDERED: GLUCAGON 1 MG/VIAL IM PRN (18:45)
[2019-01-19] MEDS ORDERED: INFLUENZA VACCINE (for 3y+) 0.5 ML DOSE IMVAC ONE (21:00)
[2019-01-19] MEDS ORDERED: PNEUMOCOCCAL VACCINE 0.5 ML IMVAC ONE (21:00)
[2019-01-19] MEDS: CEFTRIAXONE/SWI 1gm 1 GM/10 ML SYR IVP SCH (21:42)
[2019-01-19] MEDS: INSULIN -REGULAR HUMAN 50 UNIT/0.5 ML ML SQ SCH (21:42)
[2019-01-19] MEDS ORDERED: TEMAZEPAM 15 MG CAP PO PRN (22:11)
[2019-01-19] MEDS: GUAIFENESIN/CODEINE 5ML UCUP PO PRN (22:49)
[2019-01-20] MEDS: ACETAMINOPHEN 500 MG TAB PO PRN ×2 (00:13→22:17)
[2019-01-20 05:04] LABS: Urine Appearance CLEAR; Urine Bilirubin NEGATIVE (NEG); Urine Blood NEGATIVE (NEG); Urine Color DK YELLOW; Urine Glucose 3+ (NEG); Urine Protein TRACE (NEG); Urine Specific Gravity >=1.030 (1.005-1.030)
[2019-01-20] MEDS: NA CHLORIDE 0.9% 1,000 ML IV SCH ×2 (05:10→21:30)
--- NOTE | 2019-01-20 05:18 | HP ---
Date of Admission: 01/19/2019 Chief Complaint: Generalized malaise, shortness of breath, cough. Code Status: Full code. History Of Present Illness: The patient is a 68-year-old male with past medical history of hypertens ion, hyperlipidemia, who was admitted to the hospital on 01/07/2019 with influenza. The patient was discharged in a stable condition. However, since being at home, he has had worsening symptoms includ ing cough, generalized malaise, weakness, and lethargy. The patient's symptoms are constant, moderat e, and progressively worsening. The patient came back to the ER for further evaluation. Upon arriva l, he was slightly tachycardic, afebrile. He was 92% on room air. The patient's workup revealed valentine vated white count of 14,000. His imaging studies including chest x-ray showed bilateral pneumonia. The patient was then referred for admission. Past Medical History: Hypertension, hyperlipidemia. Past Surgical History: Carpal tunnel surgery. Allergies: NO KNOWN DRUG ALLERGIES. Medications: List reviewed. Family History: Father has hypertension and diabetes. Mother also has hypertension and diabetes. Social History: The patient is a daily smoker. Uses alcohol occasionally. No illicit drug use. Is . Lives with his at home. Independent in his activities of daily living. Review of Systems: Ten-point system reviewed, negative except as per HPI. Physical Examination: Vital Signs: Temperature 97.8, heart rate 103, blood pressure 97/64, respirations 20, O2 94% on room air. General: Awake, alert, oriented x3, ill-appearing male, in some mild distress. HEENT: Normocephalic, atraumatic. PERRLA. EOMI. Dry mucous membranes. Oropharynx is clear. Conj unctivae anicteric. Neck: Supple. No JVD. Trachea midline. CV: S1, S2. Sinus tachycardia. Peripheral pulses present. Respiratory: Moving air well bilaterally. No wheezing or stridor. Diminished breath sounds at the bases. Gastrointestinal: Abdomen is soft, nontender, nondistended. Positive bowel sounds. No guarding or rigidity. Extremities: No clubbing, cyanosis, or edema. No calf tenderness. Neuro: Cranial nerves 2 through 12 intact grossly. No focal neurological deficit. Speech is normal . Skin: No rashes. Normal skin turgor. Laboratory Data: Sodium 133, potassium 4, chloride 98, CO2 24, BUN 21, creatinine 0.99, glucose 293, calcium 8.9, albumin 2.5. WBC 14.4, H and H 12 and 35.7, platelets 256, neutrophils 76%. Imaging Studies: Chest x-ray shows [id number] bilateral reticulonodular lung infiltrates are present, greatest in the lung bases, likely representing pulmonary infection, pneumonia. CT scan of the abdomen and pelvis showing extensive reticulonodular infiltrates in both lung bases, most compati ble with pulmonary infection. Punctate bilateral nephrolithiasis without hydronephrosis. Assessment: A 68-year-old male with: 1.Post influenza pneumonia. We will continue with IV antibiotics and obtain cultures. 2.Nephrolithiasis nonobstructing. We will obtain UA and continue on IV fluids. 3.Hyperglycemia without diagnosis of diabetes. We will start on sliding scale insulin and check hem oglobin A1c. 4.Essential hypertension. We will resume home medications as appropriate. Currently hypotensive. 5.Hyperlipidemia, mixed. We will continue statin. Plan: Admit the patient to Med-Surg, place as an inpatient. We will obtain lactate level. Length o f stay greater than 2 midnights. CATERINA Voice ID: [id number]
[2019-01-20 05:25] LABS: Urine Bacteria <20 /HPF (NONE SEEN); Urine Culture Reflex Order NOT NEEDED; Urine Mucus SLIGHT /HPF (NONE SEEN); Urine RBC <5 /HPF (NONE SEEN)
[2019-01-20 06:14] LABS: Absolute Lymphocytes (CBC) 1.5 K/uL (0.7-4.9); Absolute Monocytes 1.9 K/uL (0.1-1.3); Absolute Neutrophil 8.7 K/uL (1.8-8.0); Basophils % 0.4 % (0-1.3); Eosinophils % 0.4 % (0-4.4); Hematocrit 30.9 % (39.6-49.0); Lymphocytes % 12.5 % (15.3-44.8); MPV 7.4 fL (7.6-11.3); Monocytes % 15.7 % (3.3-12.3); RBC Red Blood Cell Count 3.69 M/uL (4.33-5.43)
[2019-01-20 06:25] LABS: BUN Blood Urea Nitrogen 17 mg/dL (7-18); Bicarbonate 27 mmol/L (21-32); Glucose Level 173 mg/dL (74-106); Sodium Level 137 mmol/L (136-145)
[2019-01-20 08:29] LABS: Blood Morphology Comment NOT SEEN (NOT SEEN); Platelet Estimate ADEQ
[2019-01-20] MEDS ORDERED: VANCOMYCIN 1.5 GM in NA CHLORIDE 0.9% 500 ML IVPB SCH (09:00)
[2019-01-20] MEDS: CEFTRIAXONE/SWI 1gm 1 GM/10 ML SYR IVP SCH (09:00)
[2019-01-20] MEDS: AZITHROMYCIN IV 500 MG in NA CHLORIDE 0.9% 250 ML IVPB SCH (09:01)
[2019-01-20] MEDS: ENOXAPARIN 40 MG/0.4 ML SQ SCH (09:01)
[2019-01-20] MEDS: INSULIN -REGULAR HUMAN 50 UNIT/0.5 ML ML SQ SCH ×4 (09:02→21:00)
[2019-01-20] MEDS: GUAIFENESIN/CODEINE 5ML UCUP PO PRN (12:12)
--- NOTE | 2019-01-20 16:15 | P.PN ---
Subjective Date of Service: 01/20/19 Primary Care Provider: Dr. Kaiden Deng Chief Complaint: Cough Subjective: Improving Patient seen and examined at bedside. No family at bedside. Chart reviewed and case discussed with nursing staff. Review of Systems 10-point ROS is otherwise unremarkable Physical Examination - Vital Signs Temperature: 98.8 F Blood Pressure: 133/63 Pulse: 87 Respirations: 17 Pulse Ox (%): 93 - Physical Exam General: Alert, In no apparent distress HEENT: Atraumatic, PERRLA, EOMI Neck: Supple, JVD not distended Respiratory: Clear to auscultation bilaterally, Normal air movement Cardiovascular: Regular rate/rhythm, Normal S1 S2 Gastrointestinal: Normal bowel sounds, No tenderness Musculoskeletal: No tenderness Integumentary: No rashes Neurological: Normal speech, Normal tone, Normal affect Lymphatics: No axilla or inguinal lymphadenopathy Assessment And Plan - Current Problems (Diagnosis) (1) Pneumonia Current Visit: Yes Status: Acute Qualifiers: Pneumonia type: due to unspecified organism (2) Diabetes mellitus Current Visit: No Status: Chronic Qualifiers: Diabetes mellitus type: type 2 Diabetes mellitus long-term insulin use: with long-term use Diabetes mellitus complication status: with hyperglycemia Qualified Code(s): E11.65 - Type 2 diabetes mellitus with hyperglycemia; Z79.4 - 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 Change antibiotics to Maxipime and oral doxycycline. Pending cultures. Nephrolithiasis nonobstructing. Urinalysis obtained. Continue IV fluids. Type 2 diabetes mellitus, long-term insulin usage, with hyperglycemia Hemoglobin A1c checked this visit, elevated at 10.7. Unsure patient compliant with medications. He is currently on Trajendta, Tojeou , and metformin at home. We will continue these home medications along with mild sliding scale insulin. Will continue to adjust as needed. He will need outpatient follow up with his primary care physician for further management of his diabetes mellitus. Essential hypertension. We will resume home medications as appropriate. Hyperlipidemia, mixed. We will continue statin. DVT prophylaxis: Lovenox GI prophylaxis: Nexium, home medication Diet: Diabetic Disposition: Continue to monitor on the floor. Continue IV antibiotics. Pending symptomatic improvement Discharge Plan: Home
[2019-01-20 17:39] LABS: Urine Appearance CLEAR; Urine Bilirubin NEGATIVE (NEG); Urine Blood NEGATIVE (NEG); Urine Color YELLOW; Urine Glucose 3+ (NEG); Urine Protein NEGATIVE (NEG); Urine Specific Gravity >=1.030 (1.005-1.030)
[2019-01-20 17:42] LABS: Urine Microscopic Reflex NO UMIC
[2019-01-20] MEDS: ROSUVASTATIN 10 MG TAB PO SCH (21:29)
[2019-01-20] MEDS: DOXYCYCLINE 100 MG CAP PO SCH (21:29)
[2019-01-20] MEDS: CEFEPIME/SWI 2gm 2 GM/20 ML SYR IV SCH (21:29)
[2019-01-21] MEDS: LEVOTHYROXINE SOD 0.075 MG TAB PO SCH (06:14)
[2019-01-21] MEDS: GUAIFENESIN/CODEINE 5ML UCUP PO PRN ×2 (06:14→21:27)
[2019-01-21 08:36] LABS: Potassium 3.7 mmol/L (3.5-5.1)
[2019-01-21 08:44] LABS: Absolute Lymphocytes (CBC) 1.2 K/uL (0.7-4.9); Absolute Monocytes 1.2 K/uL (0.1-1.3); Absolute Neutrophil 7.2 K/uL (1.8-8.0); Basophils % 0.5 % (0-1.3); Eosinophils % 0.7 % (0-4.4); Hematocrit 32.9 % (39.6-49.0); Lymphocytes % 12.1 % (15.3-44.8); MPV 7.7 fL (7.6-11.3); Monocytes % 12.1 % (3.3-12.3); RBC Red Blood Cell Count 3.86 M/uL (4.33-5.43)
[2019-01-21] MEDS: INSULIN GLARGINE 100 UNITS/ML SQ SCH (09:00)
[2019-01-21] MEDS: LISINOPRIL 5 MG TAB PO SCH (09:00)
[2019-01-21] MEDS ORDERED: HOME MED 1 EA UNK (Esomeprazole Mag Trihydrate [Nexium] 40 MG) PO SCH (09:00)
[2019-01-21] MEDS ORDERED: INSULIN GLARGINE HUM REC ANLOG 70 UNIT SQ SCH (09:00)
[2019-01-21] MEDS: PANTOPRAZOLE 40MG TABLET PO SCH (10:10)
[2019-01-21] MEDS: SERTRALINE HCL 50 MG TAB PO SCH (10:10)
[2019-01-21] MEDS: INSULIN -REGULAR HUMAN 50 UNIT/0.5 ML ML SQ SCH ×4 (10:10→21:28)
[2019-01-21] MEDS: DOXYCYCLINE 100 MG CAP PO SCH ×2 (10:10→21:27)
[2019-01-21] MEDS: ENOXAPARIN 40 MG/0.4 ML SQ SCH (10:11)
[2019-01-21] MEDS: NA CHLORIDE 0.9% 1,000 ML IV SCH ×2 (10:11→21:33)
[2019-01-21] MEDS: CEFEPIME/SWI 2gm 2 GM/20 ML SYR IV SCH ×2 (10:15→21:27)
--- NOTE | 2019-01-21 17:40 | P.PN ---
Subjective Date of Service: 01/21/19 Primary Care Provider: Dr. Kaiden Deng Chief Complaint: Cough Subjective: Improving Patient seen and examined at bedside. No family at bedside. Chart reviewed and case discussed with nursing staff. Review of Systems 10-point ROS is otherwise unremarkable Physical Examination - Vital Signs Temperature: 99.6 F Blood Pressure: 113/59 Pulse: 73 Respirations: 18 Pulse Ox (%): 94 - Physical Exam General: Alert, In no apparent distress, Oriented x3 HEENT: Atraumatic, PERRLA, EOMI Neck: Supple, JVD not distended Respiratory: Clear to auscultation bilaterally, Normal air movement Cardiovascular: Regular rate/rhythm, Normal S1 S2 Gastrointestinal: Normal bowel sounds, No tenderness Musculoskeletal: No tenderness Integumentary: No rashes Neurological: Normal speech, Normal tone, Normal affect Lymphatics: No axilla or inguinal lymphadenopathy Assessment And Plan - Current Problems (Diagnosis) (1) Pneumonia Current Visit: Yes Status: Acute Qualifiers: Pneumonia type: due to unspecified organism (2) Diabetes mellitus Current Visit: No Status: Chronic Qualifiers: Diabetes mellitus type: type 2 Diabetes mellitus long term care pharmacist insulin use: with long term care pharmacist use Diabetes mellitus complication status: with hyperglycemia Qualified Code(s): E11.65 - Type 2 diabetes mellitus with hyperglycemia; 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 Continue antibiotics with Maxipime and oral doxycycline. Pending cultures. Nephrolithiasis nonobstructing. Urinalysis obtained. Continue IV fluids. Type 2 diabetes mellitus, usp insulin usage, with hyperglycemia Hemoglobin A1c checked this visit, elevated at 10.7. Unsure patient compliant with medications. He is currently on Trajendta, Tojeou , and metformin at home. We will continue these home medications along with mild sliding scale insulin. Will continue to adjust as needed. He will need outpatient follow up with his primary care physician for further management of his diabetes mellitus. Essential hypertension. We will resume home medications as appropriate. Hyperlipidemia, mixed. We will continue statin. DVT prophylaxis: Lovenox GI prophylaxis: Nexium, home medication Diet: Diabetic Disposition: Continue to monitor on the floor. Continue IV antibiotics. Pending symptomatic improvement. Likely discharge home in the next 24-48 hr
[2019-01-21] MEDS: ROSUVASTATIN 10 MG TAB PO SCH (21:27)
[2019-01-22] MEDS: LEVOTHYROXINE SOD 0.075 MG TAB PO SCH (05:46)
[2019-01-22 05:48] LABS: BUN Blood Urea Nitrogen 12 mg/dL (7-18); Bicarbonate 28 mmol/L (21-32); Glucose Level 93 mg/dL (74-106); Magnesium 1.6 mg/dL (1.8-2.4); Potassium 3.2 mmol/L (3.5-5.1); Sodium Level 138 mmol/L (136-145)
[2019-01-22] MEDS: NA CHLORIDE 0.9% 1,000 ML IV SCH (05:49)
[2019-01-22] MEDS ORDERED: POTASSIUM CL SA 10 MEQ TAB PO ONE (05:51)
[2019-01-22] MEDS ORDERED: MAGNESIUM SULFATE 1 gm IVPB 1 GM/100 ML BAG IV ONE (05:52)
[2019-01-22] MEDS: INSULIN -REGULAR HUMAN 50 UNIT/0.5 ML ML SQ SCH ×2 (07:30→11:30)
[2019-01-22 08:16] VITALS: O2SAT 93
[2019-01-22] MEDS: PANTOPRAZOLE 40MG TABLET PO SCH (08:24)
[2019-01-22] MEDS: DOXYCYCLINE 100 MG CAP PO SCH (08:25)
[2019-01-22] MEDS: SERTRALINE HCL 50 MG TAB PO SCH (08:25)
[2019-01-22] MEDS: INSULIN GLARGINE 100 UNITS/ML SQ SCH (08:25)
[2019-01-22] MEDS: ENOXAPARIN 40 MG/0.4 ML SQ SCH (08:26)
[2019-01-22] MEDS: CEFEPIME/SWI 2gm 2 GM/20 ML SYR IV SCH (08:26)
[2019-01-22] MEDS: LISINOPRIL 5 MG TAB PO SCH (08:36)
[2019-01-22 08:37] VITALS: BP 105/61
[2019-01-22 10:47] VITALS: TEMP 97.7
--- NOTE | 2019-01-22 14:29 | P.DS ---
Admission Date: 01/19/19 Discharge Date: 01/22/19 Primary Care Provider: Dr. 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 The patient was discharged in a stable condition. However, since being at home , he has had worsening symptoms including cough, generalized malaise, weakness, and lethargy. The patient's symptoms are constant, moderate, and progressively worsening. The patient came back to the ER for further evaluation. Upon arrival, he was slightly tachycardic, afebrile. He was 92% on room air. The patient's workup revealed elevated white count of 14,000. His imaging studies including chest x-ray showed bilateral pneumonia. The patient was then referred for admission. Hospital Course: Post influenza pneumonia. Patient was started on IV antibiotics. antibiotics were adjusted to Maxipime and oral doxycycline. Blood cultures remained negative. Patient is symptomatically improved. Patient's cough also improved. Patient is ambulating without any concerns, tolerating oral diet. He was discharged on oral doxycycline and Cefdinir. Type 2 diabetes mellitus, [facility]cfp insulin usage, with hyperglycemia Hemoglobin A1c checked this visit, elevated at 10.7. Unsure patient compliant with medications. He is currently on Trajendta, Tojeou , and metformin at home. Home medications were continued along with mild sliding scale insulin. He will need outpatient follow up with his primary care physician for further management of his diabetes mellitus. He remained otherwise stable throughout the stay. Vital Signs/Physical Exam: Temp Pulse Resp BP Pulse Ox 97.7 F 66 18 105/61 92 01/22/19 08:00 01/22/19 08:36 01/22/19 08:00 01/22/19 08:36 01/22/19 08:00 General: Alert, In no apparent distress, Oriented x3 HEENT: Atraumatic, PERRLA, EOMI Neck: Supple, JVD not distended Respiratory: Clear to auscultation bilaterally, Normal air movement Cardiovascular: Regular rate/rhythm, Normal S1 S2 Gastrointestinal: Normal bowel sounds, No tenderness Musculoskeletal: No tenderness Integumentary: No rashes Neurological: Normal speech, Normal tone, Normal affect Lymphatics: No axilla or inguinal lymphadenopathy Laboratory Data at Discharge: WBC 9.7 K/uL (4.3-10.9) D 01/21/19 07:52 Hgb 11.1 g/dL (13.6-17.9) L 01/21/19 07:52 Hct 32.9 % (39.6-49.0) L 01/21/19 07:52 Plt Count 371 K/uL (152-406) 01/21/19 07:52 Sodium 138 mmol/L (136-145) 01/22/19 05:24 Potassium 3.2 mmol/L (3.5-5.1) L 01/22/19 05:24 BUN 12 mg/dL (7-18) 01/22/19 05:24 Creatinine 0.72 mg/dL (0.55-1.3) 01/22/19 05:24 Glucose 93 mg/dL (74-106) 01/22/19 05:24 Magnesium 1.6 mg/dL (1.8-2.4) L 01/22/19 05:24 Total Bilirubin 1.0 mg/dL (0.2-1.0) 01/19/19 13:45 AST 15 U/L (15-37) 01/19/19 13:45 ALT 26 U/L (12-78) 01/19/19 13:45 Alkaline Phosphatase 84 U/L (45-117) 01/19/19 13:45 Lipase 55 U/L (73-393) L 01/19/19 13:45 Home Medications: Esomeprazole Mag Trihydrate [Nexium] 40 mg PO DAILY 01/20/19 Insulin Glargine,Hum.rec.anlog [Toujeo Solostar] 70 unit SQ DAILY 01/20/19 Levothyroxine [Synthroid*] 75 mcg PO [id number] 01/20/19 Linagliptin [Tradjenta] 5 mg PO DAILY 01/20/19 Lisinopril [Prinivil*] 5 mg PO DAILY 01/20/19 Metformin ER [Glucophage ER*] 500 mg PO BID 01/20/19 Rosuvastatin [Crestor*] 10 mg PO BEDTIME 01/20/19 Sertraline [Zoloft*] 50 mg PO DAILY 01/20/19 Benzonatate [Tessalon Perle] 100 mg PO TID PRN #15 cap 01/22/19 Cefdinir [Omnicef] 300 mg PO Q12HR #10 capsule 01/22/19 Doxycycline Hyclate 100 mg PO BID #10 tablet 01/22/19 New Medications: Cefdinir [Omnicef] 300 mg PO Q12HR #10 capsule Benzonatate [Tessalon Perle] 100 mg PO TID PRN #15 cap PRN Reason: Cough Doxycycline Hyclate 100 mg PO BID #10 tablet Patient Discharge Instructions: Please follow up with your primary care physician in 2-3 days. Please return to the ER for worsening symptoms. Diet: ADA Activity: Ad michelle Followup: Kaiden Deng DO [Primary Care Provider] - 2-3 Days Time spent managing pt's care (in minutes): 55
== END 2019-01-22 11:45 | disposition home or self-care (01) | DRG 195 ==
LOC: ER 12:25 → ERHOLD 15:34 → 2ND 16:44
PROVIDERS: ADMIT Family Medicine; ATTEND Family Medicine
DX: J18.9 Pneumonia, unspecified organism (principal); N20.0 Calculus of kidney; I10 Essential (primary) hypertension; E11.65 Type 2 diabetes mellitus with hyperglycemia; Z79.4 Long term (current) use of insulin; E78.2 Mixed hyperlipidemia
CPT/HCPCS: 36415; 71045; 74176; 80048; 80076; 81001; 81003; 82962; 83036; 83605; 83690; 83735; 85025; 87040; 93005; 97162; 99285; J0456; J0692; J0696; J1650; J3475; J7030